=== PATIENT | female | born 1950 | race Caucasian/White ===

== ENCOUNTER → 2019-11-22 | Outpatient (CLI) | payer MEDICARE, BC | END | disposition home or self-care (01) | LOC: LAB SHORT 13:44 → PLD 13:44 | DX: L30.8 Other specified dermatitis (principal) | CPT/HCPCS: 88305; 88312 ==

== ENCOUNTER 2022-07-22 09:15 | Day surgery (SDC) | payer MEDICARE, BC ==
[~2022-07-22] VITALS: Ht 154.9 cm; Wt 76.8 kg
[2022-07-22] MEDS ORDERED: Crestor5 MG PO (09:47)
[2022-07-22 11:31] VITALS: BP 147/81
--- NOTE | 2022-07-22 12:18 | NUR ---
07/22/22 PIPER CHAPA PT HEART RATE SUSTAINED IN MID 50'S BUT DROPPED LOW 44 FOR BRIEF PERIODS OF TIME DURING STAY IN STEP DOWN. PT DENIED DIZZINESS OR CHEST PAIN. DR. BERRIOS WAS CONSULTED. HE APPROVED DISCHARGE. DR. PALENCIA WAS CONTACTED AND AGREED TO SWITCH PT'S PERSCRIPTION TO A PHARMACY WITH A DRIVE THROUGH. PT AND HER WERE INSTRUCTED THAT PT SHOULD NOT BE LEFT ALONE FOR 24 HOURS AND SHOULD EXERCISE EXTREME CAUTION WHILE AMBULATING. PT VOICED READINESS FOR DISCHARGE.
== END 2022-07-22 12:06 | disposition home or self-care (01) ==
LOC: ORSCSDS 09:15
PROVIDERS: Orthopaedic Surgery
PROC: 0LB60ZZ Excision of Left Lower Arm and Wrist Tendon, Open Approach (ICD-10-PCS; principal; 2022-07-22 10:45)
DX: M67.432 Ganglion, left wrist (principal); E78.5 Hyperlipidemia, unspecified; Z87.891 Personal history of nicotine dependence; Z79.899 Other long term (current) drug therapy
CPT/HCPCS: J0171; J0690; J1100; J1885; J2250; J2405; J2704; J2795; J3010; J7120

== ENCOUNTER → 2022-09-28 | Outpatient (CLI) | payer MEDICARE, BC ==
[~2022-09-28] MED LIST: Crestor5 MG PO
== END | disposition home or self-care (01) ==
LOC: LAB 15:24 → LAB SHORT 15:24
DX: N76.0 Acute vaginitis (principal); R30.0 Dysuria
CPT/HCPCS: 87070; 87077; 87086; 87186; 87205

== ENCOUNTER → 2022-11-15 | Outpatient (CLI) | payer MEDICARE, BC | END | disposition home or self-care (01) | LOC: LAB SHORT 17:19 → LAB 17:19 | DX: R30.0 Dysuria (principal) | CPT/HCPCS: 87086 ==